=== PATIENT | male | born 1960 | race American Indian/Alaskan Native ===

== ENCOUNTER 2019-10-03 11:51 | Emergency (ER) | payer MEDICAID, OTHER ==
[2019-10-03] MEDS ORDERED: Sodium Chloride 0.9% 10 ML Syringe FLUSH PRN (12:01)
[2019-10-03] MEDS ORDERED: Sodium Chloride 0.9% 1,000 ML IV ONE ×3 (12:01→14:36)
[2019-10-03 12:49] LABS: ANION GAP 17.2 mEq/L (7-13)
[2019-10-03] MEDS ORDERED: Piperacillin/Tazobactam 3.375 GM in Sodium Chloride 0.9% 100 ML IV ONE (13:10)
[2019-10-03] MEDS ORDERED: Adenosine 6 MG/2 ML SDV IVPUSH ONE ×3 (13:19→14:36)
[2019-10-03 13:22] LABS: PTT,PARTIAL THROMBOPLSTIN TIME 32.4 SEC (22.0-34.0)
[2019-10-03 13:25] LABS: BASE EXCESS ARTERIAL -3 mmol/L ((-2)-(+3)); BICARBONATE,ARTERIAL 19.8 mmol/L (22-26); O2 DELIVERY DEVICE NASAL CANNULA; O2 SATURATION ARTERIAL 97 % (95-100); PCO2 ARTERIAL 29 mmHg (35-45); PO2 ARTERIAL 87 mmHg (70-100)
--- NOTE | 2019-10-03 13:29 | CR ---
PROCEDURE INFORMATION: Exam: XR Chest, 1 View Exam date and time: 10/03/2019 1:19 PM Age: 58 years old Clinical indication: Dyspnea TECHNIQUE: Imaging protocol: XR of the chest Views: 1 view. COMPARISON: No relevant prior studies available. FINDINGS: Lungs: Near-total opacification of the right hemithorax with minimal residual aerated lung at the right lung base and right apex. Pleural space: Unremarkable. No pleural effusion. No pneumothorax. Heart/Mediastinum: No mediastinal shift.The cardiac silhouette appears of normal size and configuration. Bones/joints: Unremarkable. IMPRESSION: Near-total opacification of the right hemithorax with minimal residual aerated lung at the right lung base and right apex.
[2019-10-03 13:30] LABS: ALLEN TEST pos; O2 FLOW RATE 3
--- NOTE | 2019-10-03 14:21 | CT ---
PROCEDURE INFORMATION: Exam: CT Chest Without Contrast Exam date and time: 10/03/2019 1:47 PM Age: 58 years old Clinical indication: Other: Abn cxr; Additional info: Abnormal cxr TECHNIQUE: Imaging protocol: Computed tomography of the chest without contrast. Radiation optimization: All CT scans at this facility use at least one of these dose optimization techniques: automated exposure control; mA and/or kV adjustment per patient size (includes targeted exams where dose is matched to clinical indication); or iterative reconstruction. COMPARISON: CR Chest 1V Frontal 10/03/2019 1:19 PM FINDINGS: Lungs: On lung windows there is near complete consolidation the right upper lobe. With associated air bronchograms. Pleural space: Unremarkable. No pneumothorax. No pleural effusion. Heart: Unremarkable. No cardiomegaly. No pericardial effusion. Aorta: Unremarkable. No aortic aneurysm. Lymph nodes: There are upper right paratracheal lymph nodes present measuring up to a cm. There is a larger right paratracheal node measuring 2.3 cm. There are multiple precarinal lymph nodes measuring up to 1.5 cm. There is also evidence of subcarinal enlarged lymph nodes. Bones/joints: Bone windows demonstrate anterior prominent osteophyte formation involving the mid and lower thoracic. There is degenerative changes seen involving the sternum. Soft tissues: Unremarkable. IMPRESSION: Complete consolidation of the right upper lobe except for the anterior aspect of the apex. There is associated mediastinal adenopathy. Although this may be secondary to pneumonia, however, the adenopathy is concerning for possible malignancy. Follow up after treatment is needed to document resolution.
--- NOTE | 2019-10-03 14:57 | EDM.PDOC ---
Scribed by Yasmin Chong 10/03/19 2504 for Angelique Rubio MD ED HPI GENERAL MEDICAL PROBLEM - General Chief Complaint: General Stated Complaint: FEVER/EXPOSURE TO COVID Time Seen by Provider: 10/03/19 12:30 Source of Information: Reports: Patient, RN, RN Notes Reviewed - History of Present Illness INITIAL COMMENTS - FREE TEXT/NARRATIVE: Patient presents to ED by POV stating he has had diarrhea for 2 weeks. He lives in an and has not had a ride in. On arrival he was complaining of chest pain, hypotensive and hypoxic. He has not eaten in 4-5 days. He has had no ETOH or drugs. He has no cough, but is short of breath. He lives alone. He states nothing hurts. he does have nausea. He also states "doesn't want to ". Onset: Gradual Duration: Getting Worse Location: Reports: Generalized Quality: Reports: Ache Severity: Moderate Improves with: Reports: None Worsens with: Reports: None Associated Symptoms: Reports: No Other Symptoms Abdominal Pain Score (Numeric/FACES): 4 - Related Data Allergies Allergy/AdvReac Type Severity Reaction Status Date / Time No Known Allergies Allergy Verified 10/03/19 12:37 Home Meds: Home Meds . [No Known Home Meds] 10/03/19 [History] Past Medical History - Past Health History Medical/Surgical History: Denies Medical/Surgical History Social & Family History - Family History Family Medical History: Noncontributory - Caffeine Use Caffeine Use: Reports: Coffee ED ROS GENERAL - Review of Systems Review Of Systems: Comprehensive ROS is negative, except as noted in HPI. ED EXAM, GENERAL - Physical Exam Exam: See Below Exam Limited By: No Limitations General Appearance: Alert, Thin, Other (disheveled) Throat/Mouth: No: Normal Teeth Head: Atraumatic, Normocephalic Respiratory/Chest: Respiratory Distress, Decreased Breath Sounds, Accessory Muscle Use, Retractions Cardiovascular: No Edema, Tachycardia (with runs of SVT) GI/Abdominal: Tender (to palpation. Generalized mild guarding.) Extremities: No Pedal Edema Neurological: Alert, Oriented, CN II-XII Intact, Normal Cognition, Normal Gait, Normal Reflexes, No Motor/Sensory Deficits Psychiatric: Normal Affect, Normal Mood Skin Exam: Warm, Dry, Intact, Normal Color, No Rash Course - Vital Signs Last Recorded V/S: Last Vital Signs Temp 98.8 F 10/03/19 12:00 Pulse 110 H 10/03/19 12:00 Resp 38 H 10/03/19 12:00 BP 75/58 L 10/03/19 12:00 Pulse Ox 85 L 10/03/19 12:00 - Orders/Labs/Meds Orders: Active Orders 24 hr Category Date Time Status EKG 12 Lead [EKG Documentation Completion] [] STAT Care 10/03/19 13:05 Active EKG Documentation Completion [RC] STAT Care 10/03/19 12:04 Active Oxygen Therapy Adult [Oxygen Therapy, ED] [] Care 10/03/19 12:02 Active ASDIRECTED Peripheral IV Care [RC] . DIRECTED Care 10/03/19 12:01 Active CLOSTRIDIUM DIFFICILE TOX RFLX [MREF] Stat Lab 10/03/19 13:17 Ordered CULTURE BLOOD [BC] Stat Lab 10/03/19 12:17 Received CULTURE BLOOD [BC] Stat Lab 10/03/19 12:20 Received CULTURE STOOL [RM] Stat Lab 10/03/19 13:17 Ordered DRUG SCREEN,SERUM [CHEM] Stat Lab 10/03/19 12:35 Ordered UA W/CHANTE RFLX IF INDICATED [URIN] Stat Lab 10/03/19 12:04 Ordered Sodium Chloride 0.9% [Normal Saline] 1,000 ml Med 10/03/19 14:36 Active IV .BOLUS Sodium Chloride 0.9% [Saline Flush] Med 10/03/19 12:01 Active 10 ml FLUSH ASDIRECTED PRN Blood Culture x2 Reflex Set [OM.PC] Stat Oth 10/03/19 12:03 Ordered Isolation [COMM] Stat Oth 10/03/19 13:18 Active Peripheral IV Insertion Adult [OM.PC] Routine Oth 10/03/19 12:01 Ordered Medication Orders Sodium Chloride (Normal Saline) 1,000 mls @ 999 mls/hr IV .BOLUS ONE Stop: 10/03/19 15:36 Last Admin: 10/03/19 14:00 Dose: 999 mls/hr Documented by: CELIO Sodium Chloride (Saline Flush) 10 ml FLUSH ASDIRECTED PRN PRN Reason: Keep Vein Open Last Admin: 10/03/19 12:10 Dose: 10 ml Documented by: CELIO Labs: Laboratory Tests 10/03/19 10/03/19 10/03/19 Range/Units 12:15 12:17 12:17 WBC 12.8 H (5.0-10.0) 10^3/uL RBC 4.53 L (4.6-6.2) 10^6/uL Hgb 13.4 L (14.0-18.0) g/dL Hct 37.4 L (40.0-54.0) % MCV 82.6 (80-100) fL MCH 29.6 (27.0-34.0) pg MCHC 35.8 H (33.0-35.0) g/dL Plt Count 212 (150-450) 10^3/uL Neut % (Auto) 94.5 H (42.2-75.2) % Lymph % (Auto) 3.0 L (20.5-50.1) % [place] % (Auto) 2.3 (2-8) % Eos % (Auto) 0.1 L (1.0-3.0) % Baso % (Auto) 0.1 (0.0-1.0) % Add Manual Diff Yes Neutrophils % (Manual) 88 H (42-75) % Band Neutrophils % 5 % Lymphocytes % (Manual) 4 L (20-50) % Monocytes % (Manual) 3 (2-8) % Giant Platelets Few PT (9.0-12.0) SEC INR (0.9-1.2) APTT (22.0-34.0) SEC ABG pH (7.35-7.45) ABG pCO2 (35-45) mmHg ABG pO2 (70-100) mmHg ABG HCO3 (22-26) mmol/L ABG O2 Saturation (95-100) % ABG Base Excess ((-2)-(+3)) mmol/L Júnior Test O2 Delivery Device Oxygen Flow Rate Sodium 121 L (136-145) mmol/L Potassium 3.2 L (3.5-5.1) mmol/L Chloride 87 L (98-107) mmol/L Carbon Dioxide 20 L (21-32) mmol/L Anion Gap 17.2 H (7-13) mEq/L BUN 57 H (7-18) mg/dL Creatinine 2.82 H (0.70-1.30) mg/dL Est Cr Clr Drug Dosing 32.70 mL/min Estimated GFR (MDRD) 23 BUN/Creatinine Ratio 20.2 (No establ ref range) Glucose 164 H (74-99) mg/dL Lactic Acid (0.4-2.0) mmol/L Calcium < 5.0 L* (8.5-10.1) mg/dL Total Bilirubin 4.7 H (0.2-1.0) mg/dL AST 84 H (15-37) U/L ALT 40 (16-63) U/L Alkaline Phosphatase 130 H (46-116) U/L Troponin I (0.000-0.056) ng/mL Total Protein 5.4 L (6.4-8.2) g/dL Albumin 1.4 L (3.4-5.0) g/dL Globulin 4.0 Albumin/Globulin Ratio 0.35 Amylase (25-115) U/L Lipase (73-393) U/L Ethyl Alcohol (0) mg/dL COVID-19 (COTY) Negative (NEGATIVE) 10/03/19 10/03/19 10/03/19 Range/Units 12:17 12:17 12:17 WBC (5.0-10.0) 10^3/uL RBC (4.6-6.2) 10^6/uL Hgb (14.0-18.0) g/dL Hct (40.0-54.0) % MCV (80-100) fL MCH (27.0-34.0) pg MCHC (33.0-35.0) g/dL Plt Count (150-450) 10^3/uL Neut % (Auto) (42.2-75.2) % Lymph % (Auto) (20.5-50.1) % [place] % (Auto) (2-8) % Eos % (Auto) (1.0-3.0) % Baso % (Auto) (0.0-1.0) % Add Manual Diff Neutrophils % (Manual) (42-75) % Band Neutrophils % % Lymphocytes % (Manual) (20-50) % Monocytes % (Manual) (2-8) % Giant Platelets PT 12.4 H (9.0-12.0) SEC INR 1.3 H (0.9-1.2) APTT 32.4 (22.0-34.0) SEC ABG pH (7.35-7.45) ABG pCO2 (35-45) mmHg ABG pO2 (70-100) mmHg ABG HCO3 (22-26) mmol/L ABG O2 Saturation (95-100) % ABG Base Excess ((-2)-(+3)) mmol/L Júnior Test O2 Delivery Device Oxygen Flow Rate Sodium (136-145) mmol/L Potassium (3.5-5.1) mmol/L Chloride (98-107) mmol/L Carbon Dioxide (21-32) mmol/L Anion Gap (7-13) mEq/L BUN (7-18) mg/dL Creatinine (0.70-1.30) mg/dL Est Cr Clr Drug Dosing mL/min Estimated GFR (MDRD) BUN/Creatinine Ratio (No establ ref range) Glucose (74-99) mg/dL Lactic Acid 4.2 H* (0.4-2.0) mmol/L Calcium (8.5-10.1) mg/dL Total Bilirubin (0.2-1.0) mg/dL AST (15-37) U/L ALT (16-63) U/L Alkaline Phosphatase (46-116) U/L Troponin I (0.000-0.056) ng/mL Total Protein (6.4-8.2) g/dL Albumin (3.4-5.0) g/dL Globulin Albumin/Globulin Ratio Amylase (25-115) U/L Lipase (73-393) U/L Ethyl Alcohol < 3 (0) mg/dL COVID-19 (COTY) (NEGATIVE) 10/03/19 10/03/19 10/03/19 Range/Units 12:17 12:17 13:21 WBC (5.0-10.0) 10^3/uL RBC (4.6-6.2) 10^6/uL Hgb (14.0-18.0) g/dL Hct (40.0-54.0) % MCV (80-100) fL MCH (27.0-34.0) pg MCHC (33.0-35.0) g/dL Plt Count (150-450) 10^3/uL Neut % (Auto) (42.2-75.2) % Lymph % (Auto) (20.5-50.1) % [place] % (Auto) (2-8) % Eos % (Auto) (1.0-3.0) % Baso % (Auto) (0.0-1.0) % Add Manual Diff Neutrophils % (Manual) (42-75) % Band Neutrophils % % Lymphocytes % (Manual) (20-50) % Monocytes % (Manual) (2-8) % Giant Platelets PT (9.0-12.0) SEC INR (0.9-1.2) APTT (22.0-34.0) SEC ABG pH 7.45 (7.35-7.45) ABG pCO2 29 L (35-45) mmHg ABG pO2 87 (70-100) mmHg ABG HCO3 19.8 L (22-26) mmol/L ABG O2 Saturation 97 (95-100) % ABG Base Excess -3 L ((-2)-(+3)) mmol/L Júnior Test pos O2 Delivery Device Nasal cannula Oxygen Flow Rate 3 Sodium (136-145) mmol/L Potassium (3.5-5.1) mmol/L Chloride (98-107) mmol/L Carbon Dioxide (21-32) mmol/L Anion Gap (7-13) mEq/L BUN (7-18) mg/dL Creatinine (0.70-1.30) mg/dL Est Cr Clr Drug Dosing mL/min Estimated GFR (MDRD) BUN/Creatinine Ratio (No establ ref range) Glucose (74-99) mg/dL Lactic Acid (0.4-2.0) mmol/L Calcium (8.5-10.1) mg/dL Total Bilirubin (0.2-1.0) mg/dL AST (15-37) U/L ALT (16-63) U/L Alkaline Phosphatase (46-116) U/L Troponin I < 0.017 (0.000-0.056) ng/mL Total Protein (6.4-8.2) g/dL Albumin (3.4-5.0) g/dL Globulin Albumin/Globulin Ratio Amylase 100 (25-115) U/L Lipase 500 H (73-393) U/L Ethyl Alcohol (0) mg/dL COVID-19 (COTY) (NEGATIVE) Meds: Medications Generic Name Dose Route Start Last Admin Trade Name Freq PRN Reason Stop Dose Admin Sodium Chloride 1,000 mls @ 999 mls/hr 10/03/19 14:36 10/03/19 14:00 Normal Saline IV 10/03/19 15:36 999 mls/hr .BOLUS ONE Administration Sodium Chloride 10 ml 10/03/19 12:01 10/03/19 12:10 Saline Flush FLUSH 10 ml ASDIRECTED PRN Administration Keep Vein Open Discontinued Medications Generic Name Dose Route Start Last Admin Trade Name Ilia PRN Reason Stop Dose Admin Adenosine 6 mg 10/03/19 13:19 10/03/19 12:58 Adenocard IVPUSH 10/03/19 13:20 6 mg NOW ONE Administration Adenosine 6 mg 10/03/19 14:35 10/03/19 13:36 Adenocard IVPUSH 10/03/19 14:36 6 mg NOW ONE Administration Adenosine 6 mg 10/03/19 14:36 10/03/19 13:57 Adenocard IVPUSH 10/03/19 14:37 6 mg NOW ONE Administration Sodium Chloride 1,000 mls @ 999 mls/hr 10/03/19 12:01 10/03/19 12:09 Normal Saline IV 10/03/19 13:01 999 mls/hr .BOLUS ONE Administration Piperacillin Sod/Tazobactam 100 mls @ 200 mls/hr 10/03/19 13:10 10/03/19 13:23 Sod 3.375 gm/ Sodium Chloride IV 10/03/19 13:39 200 mls/hr ONETIME ONE Administration Vancomycin HCl 1 gm/ Sodium 250 mls @ 167 mls/hr 10/03/19 13:10 10/03/19 13:23 Chloride IV 10/03/19 14:39 167 mls/hr ONETIME ONE Administration Sodium Chloride 1,000 mls @ 999 mls/hr 10/03/19 13:19 10/03/19 13:24 Normal Saline IV 10/03/19 14:19 999 mls/hr .BOLUS ONE Administration - Radiology Interpretation Free Text/Narrative:: Chest x-ray: Near-total opacification of the right hemithorax with minimal residual aerated lung at the right lung base and right apex. See rad report. Chest CT: Complete consolidation of the right upper lobe except for the anterior aspect of the apex. There is associated mediastinal adenopathy. Although this may be secondary to pneumonia, however, the adenopathy is concerning for possible malignancy. Follow up after treatment is needed to document resolution. See rad report. Departure - Departure Time of Disposition: 14:30 Disposition: DC/Tfer to [facility] 02 Condition: Serious Clinical Impression: Hypoxia, SVT (supraventricular tachycardia), Mediastinal adenopathy Pneumonia Qualifiers: Pneumonia type: due to unspecified organism Laterality: right Lung location: unspecified part of lung Qualified Code(s): J18.9 - Pneumonia, unspecified organism Sepsis Qualifiers: Sepsis type: sepsis due to unspecified organism Sepsis acute organ dysfunction status: with acute organ dysfunction Severe sepsis acute organ dysfunction type: acute respiratory failure Acute respiratory failure type: with hypoxia Severe sepsis shock status: unspecified Qualified Code(s): A41.9 - Sepsis, unspecified organism; R65.20 - Severe sepsis without septic shock; J96.01 - Acute respiratory failure with hypoxia - Discharge Information *PRESCRIPTION DRUG MONITORING PROGRAM REVIEWED*: Not Applicable *COPY OF PRESCRIPTION DRUG MONITORING REPORT IN PATIENT DEEJAY: Not Applicable Forms: ED Department Discharge, Interfacility Transfer [facility] Sepsis Event Note (ED) - Focused Exam Vital Signs: Vital Signs Temp Pulse Resp BP Pulse Ox 10/03/19 12:00 98.8 F 110 H 38 H 75/58 L 85 L - My Orders Last 24 Hours: My Active Orders 10/03/19 12:01 Peripheral IV Care [RC] . DIRECTED Sodium Chloride 0.9% [Saline Flush] 10 ml FLUSH ASDIRECTED PRN Peripheral IV Insertion Adult [OM.PC] Routine 10/03/19 12:02 Oxygen Therapy Adult [Oxygen Therapy, ED] [RC] ASDIRECTED 10/03/19 12:03 Blood Culture x2 Reflex Set [OM.PC] Stat 10/03/19 12:04 EKG Documentation Completion [RC] STAT UA W/CHANTE RFLX IF INDICATED [URIN] Stat 10/03/19 12:17 CULTURE BLOOD [BC] Stat 10/03/19 12:20 CULTURE BLOOD [BC] Stat 10/03/19 12:35 DRUG SCREEN,SERUM [CHEM] Stat 10/03/19 13:05 EKG 12 Lead [EKG Documentation Completion] [RC] STAT 10/03/19 13:17 CLOSTRIDIUM DIFFICILE TOX RFLX [MREF] Stat CULTURE STOOL [RM] Stat 10/03/19 13:18 Isolation [COMM] Stat 10/03/19 14:36 Sodium Chloride 0.9% [Normal Saline] 1,000 ml IV .BOLUS - Assessment/Plan Last 24 Hours: My Active Orders 10/03/19 12:01 Peripheral IV Care [RC] . DIRECTED Sodium Chloride 0.9% [Saline Flush] 10 ml FLUSH ASDIRECTED PRN Peripheral IV Insertion Adult [OM.PC] Routine 10/03/19 12:02 Oxygen Therapy Adult [Oxygen Therapy, ED] [RC] ASDIRECTED 10/03/19 12:03 Blood Culture x2 Reflex Set [OM.PC] Stat 10/03/19 12:04 EKG Documentation Completion [RC] STAT UA W/CHANTE RFLX IF INDICATED [URIN] Stat 10/03/19 12:17 CULTURE BLOOD [BC] Stat 10/03/19 12:20 CULTURE BLOOD [BC] Stat 10/03/19 12:35 DRUG SCREEN,SERUM [CHEM] Stat 10/03/19 13:05 EKG 12 Lead [EKG Documentation Completion] [RC] STAT 10/03/19 13:17 CLOSTRIDIUM DIFFICILE TOX RFLX [MREF] Stat CULTURE STOOL [RM] Stat 10/03/19 13:18 Isolation [COMM] Stat 10/03/19 14:36 Sodium Chloride 0.9% [Normal Saline] 1,000 ml IV .BOLUS I have read and agree with the documentation that has been completed regarding this visit. By signing this record, I attest that the documentation was complete d in my physical presence and is an accurate record of the encounter.
== END 2019-10-03 14:35 ==
LOC: DL.ED 11:51
DX: A41.9 Sepsis, unspecified organism (principal); J18.9 Pneumonia, unspecified organism; R65.20 Severe sepsis without septic shock; J96.01 Acute respiratory failure with hypoxia; I47.1 Supraventricular tachycardia; R59.0 Localized enlarged lymph nodes; R19.7 Diarrhea, unspecified; Z20.828 Contact with and (suspected) exposure to other viral communicable diseases
CPT/HCPCS: 36415; 36600; 71045; 71250; 80053; 80307; 82150; 82803; 83605; 83690; 84484; 85025; 85610; 85730; 87040; 87635; 93005; 96361; 96365; 96368; 96375; 96376; 99285; J0153; J2543; J3370; J7030; J7050; 99284; U0002

== ENCOUNTER 2019-10-13 09:04 | Inpatient (IN) | payer MEDICAID ==
[2019-10-13] MEDS ORDERED: Ondansetron 4 MG Tab.DIS PO PRN (13:58)
[2019-10-13] MEDS ORDERED: Docusate Sodium 100 MG Cap PO PRN (13:58)
[2019-10-13] MEDS: Piperacillin/Tazobactam 3.375 GM in Sodium Chloride 0.9% 100 ML IV SCH ×2 (16:00→21:58)
[2019-10-13] MEDS: traMADol 50 MG Tab PO PRN (17:06)
[2019-10-13] MEDS: Carvedilol 25 MG Tab PO SCH (17:07)
--- NOTE | 2019-10-13 17:17 | PCM.HP ---
H&P History of Present Illness - General Date of Service: 10/13/19 Admit Problem/Dx: Admission Diagnosis/Problem Admission Diagnosis/Problem Weakness Source of Information: Patient, Old Records (From [facility]) - History of Present Illness Initial Comments - Free Text/Narative: 58-year-old gentleman who initially presented with the shortness of breath. The patient was found to have pneumonia. Was transferred to [facility]. He had complicated hospital course Pneumonia with sepsis on presentation was treated He was evaluated by bronchoscopy. Followed by ID. Recommendation was continued IV Zosyn antibiotic He developed bilateral tingling in the feet. Initially Lyrica then Neurontin started Symptoms still continue Patient was noted to have acute renal insufficiency Will need nephrology follow-up He has a history of alcohol abuse. He says he quit 7 years ago. Elevated alkaline phosphatase, possible ascites was noted. 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 Runs of SVT noted These resolved Bilateral Feet Pain Score (Numeric/FACES): 7 - Related Data Allergies/Adverse Reactions: Allergies Allergy/AdvReac Type Severity Reaction Status Date / Time No Known Allergies Allergy Verified 10/13/19 12:50 Home Medications: Home Meds Furosemide 20 mg PO DAILY 10/13/19 [History] Gabapentin [Neurontin] 600 mg PO BID 10/13/19 [History] amLODIPine [Norvasc] 5 mg PO DAILY 10/13/19 [History] carvediloL [Coreg] 25 mg PO BIDMEALS 10/13/19 [History] Past Medical History - Past Health History Medical/Surgical History: Denies Medical/Surgical History HEENT History: Reports: None Other HEENT History: reading glasses Cardiovascular History: Reports: Hypertension Respiratory History: Reports: Other (See Below) Other Respiratory History: Pneumonia, sepsis 2020 Gastrointestinal History: Reports: None Genitourinary History: Reports: Chronic Renal Insuffiency, Other (See Below) Other Genitourinary History: new diagnosis Musculoskeletal History: Reports: Arthritis, Back Pain, Chronic Neurological History: Reports: Neuropathy, Peripheral Other Neuro History: Neuropathy in both feet recently Psychiatric History: Reports: None Endocrine/Metabolic History: Reports: None Hematologic History: Reports: None Immunologic History: Reports: None Oncologic (Cancer) History: Reports: None Dermatologic History: Reports: None - Infectious Disease History Infectious Disease History: Reports: None - Past Surgical History Head Surgeries/Procedures: Reports: None Cardiovascular Surgical History: Reports: None Musculoskeletal Surgical History: Reports: Other (See Below) Other Musculoskeletal Surgeries/Procedures:: left leg fracture, hip surgery Social & Family History - Family History Family Medical History: Noncontributory - Tobacco Use Smoking Status *Q: Current Every Day Smoker Years of Tobacco use: 35 Packs/Tins Daily: 1 - Caffeine Use Caffeine Use: Reports: Soda - Recreational Drug Use Recreational Drug Use: No H&P Review of Systems - Review of Systems: Review Of Systems: See Below General: Denies: Fever Pulmonary: Denies: Shortness of Breath Cardiovascular: Denies: Chest Pain, Edema Gastrointestinal: Denies: Abdominal Pain Musculoskeletal: Reports: Hand Pain (Tingling in fingers), Foot Pain (Bilateral tingling). Denies: Joint Swelling Psychiatric: Denies: Confusion Exam - Exam Exam: See Below - Vital Signs Vital Signs: Last Vital Signs Temp 97.7 F 10/13/19 13:58 Pulse 82 10/13/19 13:58 Resp 20 10/13/19 13:58 BP 128/84 10/13/19 13:58 Pulse Ox 96 10/13/19 13:58 - Exam Quality Assessment: No: Supplemental Oxygen Neck: Supple Lungs: Normal Respiratory Effort, Rhonchi (Bilateral, mild) Cardiovascular: Regular Rate, Regular Rhythm GI/Abdominal Exam: Normal Bowel Sounds, Soft, Non-Tender Extremities: No Pedal Edema - Problem List (1) Hypertension SNOMED Code(s): 29397273 ICD Code: I10 - ESSENTIAL (PRIMARY) HYPERTENSION Status: Acute Current Visit: Yes (2) Acute renal failure SNOMED Code(s): 41901649 ICD Code: N17.9 - ACUTE KIDNEY FAILURE, UNSPECIFIED Status: Acute Current Visit: Yes (3) Generalized weakness SNOMED Code(s): 01469494 ICD Code: R53.1 - WEAKNESS Status: Acute Current Visit: Yes (4) Pneumonia SNOMED Code(s): 280552686 ICD Code: J18.9 - PNEUMONIA, UNSPECIFIED ORGANISM Status: Acute Current Visit: No Problem List Initiated/Reviewed/Updated: Yes Orders Last 24hrs: Active Orders 24 hr Category Date Time Status Patient Status [ADT] Routine ADT 10/13/19 13:58 Active Oxygen Therapy [RC] PRN Care 10/13/19 13:58 Active Up With Assistance [RC] ASDIRECTED Care 10/13/19 13:58 Active Vital Signs [RC] QSHIFT Care 10/13/19 13:58 Active OT Evaluation and Treatment [CONS] Routine Cons 10/13/19 14:00 Active PT Evaluation and Treatment [CONS] Routine Cons 10/13/19 14:00 Active Regular Diet [DIET] Diet 10/13/19 Dinner Active Acetaminophen [Tylenol] Med 10/13/19 13:58 Active 650 mg PO Q4H PRN Docusate Sodium [Colace] Med 10/13/19 13:58 Active 100 mg PO BID PRN Furosemide [Lasix] Med 10/14/19 09:00 Active 20 mg PO DAILY Gabapentin [Neurontin] Med 10/13/19 21:00 Active 600 mg PO BID Heparin Sodium Med 10/13/19 22:00 Active 5,000 units SUBCUT Q8HR Ondansetron [Zofran ODT] Med 10/13/19 13:58 Active 4 mg PO Q6H PRN Piperacillin/Tazobactam [Zosyn] 3.375 gm Med 10/13/19 15:30 Active Sodium Chloride 0.9% [Normal Saline] 100 ml IV Q8HR Zolpidem [Ambien] Med 10/13/19 21:00 Active 5 mg PO BEDTIME PRN amLODIPine [Norvasc] Med 10/14/19 09:00 Active 5 mg PO DAILY carvediloL [Coreg] Med 10/13/19 18:00 Active 25 mg PO BIDMEALS traMADol [Ultram] Med 10/13/19 16:31 Active 50 mg PO Q6H PRN Resuscitation Status Routine Resus Stat 10/13/19 13:58 Ordered Medication Orders Acetaminophen (Tylenol) 650 mg PO Q4H PRN PRN Reason: Pain (Mild 1-3)/fever Amlodipine Besylate (Norvasc) 5 mg PO DAILY JOSEPH Carvedilol (Coreg) 25 mg PO BIDMEALS JOSEPH Docusate Sodium (Colace) 100 mg PO BID PRN PRN Reason: Constipation Furosemide (Lasix) 20 mg PO DAILY JOSEPH Gabapentin (Neurontin) 600 mg PO BID JOSEPH Heparin Sodium (Porcine) (Heparin Sodium) 5,000 units SUBCUT Q8HR JOSEPH Piperacillin Sod/Tazobactam (Sod 3.375 gm/ Sodium Chloride) 100 mls @ 200 mls/hr IV Q8HR JOSEPH Last Admin: 10/13/19 16:00 Dose: 200 mls/hr Documented by: CAREMOR Ondansetron HCl (Zofran Odt) 4 mg PO Q6H PRN PRN Reason: nausea, able to take PO Tramadol HCl (Ultram) 50 mg PO Q6H PRN PRN Reason: mod to severe pain Zolpidem Tartrate (Ambien) 5 mg PO BEDTIME PRN PRN Reason: Sleep Assessment/Plan Comment:: 58-year-old gentleman who initially presented with the shortness of breath. The patient was found to have pneumonia. Was transferred to [facility]. He had complicated hospital course Pneumonia with sepsis on presentation was treated He was evaluated by bronchoscopy. Followed by ID. Recommendation was continued IV Zosyn antibiotic Follow-up with ID in 1 week via telemedicine He developed bilateral tingling in the feet. Initially Lyrica then Neurontin started Symptoms still continue Add Ultram, physical and occupational therapy Patient was noted to have acute renal insufficiency Will need nephrology follow-up as outpatient He has a history of alcohol abuse. He says he quit 7 years ago. Elevated alkaline phosphatase, possible ascites was noted. 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
[2019-10-13] MEDS: Acetaminophen 325 MG Tab PO PRN (21:10)
[2019-10-13] MEDS: Zolpidem 5 MG Tab PO PRN (21:12)
[2019-10-13] MEDS: Gabapentin 300 MG Cap PO SCH (21:12)
[2019-10-13] MEDS: Heparin Sodium 5,000 Units/ML Vial SUBCUT SCH (22:03)
[2019-10-14] MEDS: Piperacillin/Tazobactam 3.375 GM in Sodium Chloride 0.9% 100 ML IV SCH ×3 (05:52→22:06)
[2019-10-14] MEDS: Heparin Sodium 5,000 Units/ML Vial SUBCUT SCH ×3 (05:57→22:01)
[2019-10-14] MEDS: traMADol 50 MG Tab PO PRN ×3 (06:03→20:32)
[2019-10-14] MEDS: Gabapentin 300 MG Cap PO SCH ×2 (09:03→20:32)
[2019-10-14] MEDS: amLODIPine 5 MG Tab PO SCH (09:03)
[2019-10-14] MEDS: Acetaminophen 325 MG Tab PO PRN ×2 (09:04→13:48)
[2019-10-14] MEDS: Furosemide 20 MG Tab PO SCH (09:04)
[2019-10-14] MEDS: Carvedilol 25 MG Tab PO SCH ×2 (09:04→18:03)
[2019-10-14] MEDS: Zolpidem 5 MG Tab PO PRN (20:32)
[2019-10-15] MEDS: traMADol 50 MG Tab PO PRN ×2 (04:41→22:27)
[2019-10-15] MEDS: Heparin Sodium 5,000 Units/ML Vial SUBCUT SCH ×3 (05:46→22:31)
[2019-10-15] MEDS: Piperacillin/Tazobactam 3.375 GM in Sodium Chloride 0.9% 100 ML IV SCH ×3 (05:48→22:24)
[2019-10-15] MEDS: Acetaminophen 325 MG Tab PO PRN (07:59)
[2019-10-15] MEDS: Gabapentin 300 MG Cap PO SCH ×2 (08:00→22:23)
[2019-10-15] MEDS: Carvedilol 25 MG Tab PO SCH ×2 (08:01→17:37)
[2019-10-15] MEDS: Furosemide 20 MG Tab PO SCH (08:01)
[2019-10-15] MEDS: amLODIPine 5 MG Tab PO SCH (08:01)
[2019-10-15] MEDS: Zolpidem 5 MG Tab PO PRN (22:27)
[2019-10-16] MEDS: Piperacillin/Tazobactam 3.375 GM in Sodium Chloride 0.9% 100 ML IV SCH ×3 (05:53→22:31)
[2019-10-16] MEDS: Heparin Sodium 5,000 Units/ML Vial SUBCUT SCH ×3 (05:57→22:39)
[2019-10-16] MEDS: Carvedilol 25 MG Tab PO SCH ×2 (09:27→17:46)
[2019-10-16] MEDS: Gabapentin 300 MG Cap PO SCH ×2 (09:28→22:35)
[2019-10-16] MEDS: amLODIPine 5 MG Tab PO SCH (09:28)
[2019-10-16] MEDS: Furosemide 20 MG Tab PO SCH (09:28)
[2019-10-16] MEDS: traMADol 50 MG Tab PO PRN ×2 (16:35→22:35)
[2019-10-16] MEDS: Zolpidem 5 MG Tab PO PRN (22:35)
[2019-10-17] MEDS: Piperacillin/Tazobactam 3.375 GM in Sodium Chloride 0.9% 100 ML IV SCH ×3 (05:39→21:16)
[2019-10-17] MEDS: Heparin Sodium 5,000 Units/ML Vial SUBCUT SCH ×3 (05:49→21:18)
[2019-10-17] MEDS: Carvedilol 25 MG Tab PO SCH ×2 (09:11→18:26)
[2019-10-17] MEDS: amLODIPine 5 MG Tab PO SCH (09:12)
[2019-10-17] MEDS: Furosemide 20 MG Tab PO SCH (09:12)
[2019-10-17] MEDS: Gabapentin 300 MG Cap PO SCH ×2 (09:12→20:16)
[2019-10-17] MEDS: traMADol 50 MG Tab PO PRN (20:17)
[2019-10-17] MEDS: Zolpidem 5 MG Tab PO PRN (20:17)
[2019-10-17] MEDS: Sodium Chloride 0.9% 10 ML Syringe FLUSH PRN (21:13)
[2019-10-18] MEDS: Piperacillin/Tazobactam 3.375 GM in Sodium Chloride 0.9% 100 ML IV SCH ×3 (06:00→22:07)
[2019-10-18] MEDS: Sodium Chloride 0.9% 10 ML Syringe FLUSH PRN ×2 (06:00→22:06)
[2019-10-18] MEDS: Heparin Sodium 5,000 Units/ML Vial SUBCUT SCH ×3 (06:03→22:04)
[2019-10-18] MEDS: Carvedilol 25 MG Tab PO SCH ×2 (07:57→17:27)
[2019-10-18] MEDS: Furosemide 20 MG Tab PO SCH ×2 (07:57→08:38)
[2019-10-18] MEDS: Gabapentin 300 MG Cap PO SCH ×3 (07:58→22:04)
[2019-10-18] MEDS: amLODIPine 5 MG Tab PO SCH ×2 (07:58→08:39)
--- NOTE | 2019-10-18 12:46 | PN ---
DATE: 10/18/2019 SUBJECTIVE: The patient is a 59-year-old male who was admitted to swing bed because of pneumonia and continued IV antibiotic treatment. The patient is doing fairly well. He denies any significant ongoing complaints. No chest pain, no shortness of breath, abdominal pain, nor any other complaints. OBJECTIVE: Vital Signs: Blood pressure is 135/81, pulse 66, respirations 20, temperature of 97, saturation is 97% on room air. Heart: Regular rate and rhythm. Normal S1 and S2. No gallops. No rubs. Lungs: Diminished breath sounds in both bases, but no crackles, no wheezing. Abdomen: Soft, nontender. Bowel sounds positive. Extremities: Negative for any pedal edema. No calf tenderness. MEDICATIONS: Reviewed. PLAN: We will continue with his present management, and we will continue with IV Zosyn. [facility] /[id number]
[2019-10-18] MEDS: Zolpidem 5 MG Tab PO PRN (22:04)
[2019-10-19] MEDS: Piperacillin/Tazobactam 3.375 GM in Sodium Chloride 0.9% 100 ML IV SCH ×3 (05:46→22:32)
[2019-10-19] MEDS: Sodium Chloride 0.9% 10 ML Syringe FLUSH PRN ×2 (05:46→14:22)
[2019-10-19] MEDS: Heparin Sodium 5,000 Units/ML Vial SUBCUT SCH ×3 (05:50→22:31)
[2019-10-19 06:57] LABS: ANION GAP 13.1 mEq/L (7-13)
[2019-10-19] MEDS: Gabapentin 300 MG Cap PO SCH ×2 (09:24→22:31)
[2019-10-19] MEDS: amLODIPine 5 MG Tab PO SCH (09:24)
[2019-10-19] MEDS: Furosemide 20 MG Tab PO SCH (09:24)
[2019-10-19] MEDS: Carvedilol 25 MG Tab PO SCH ×2 (09:24→17:56)
[2019-10-20] MEDS: Heparin Sodium 5,000 Units/ML Vial SUBCUT SCH ×3 (06:25→21:41)
[2019-10-20] MEDS: Piperacillin/Tazobactam 3.375 GM in Sodium Chloride 0.9% 100 ML IV SCH ×3 (06:28→21:42)
[2019-10-20] MEDS: amLODIPine 5 MG Tab PO SCH (09:02)
[2019-10-20] MEDS: Gabapentin 300 MG Cap PO SCH ×2 (09:02→21:41)
[2019-10-20] MEDS: Carvedilol 25 MG Tab PO SCH ×2 (09:02→17:49)
[2019-10-20] MEDS: Furosemide 40 MG Tab PO SCH (09:02)
[2019-10-20] MEDS ORDERED: Sodium Chloride 0.9% 1,000 ML IV ONE (13:30)
[2019-10-21] MEDS: Heparin Sodium 5,000 Units/ML Vial SUBCUT SCH ×3 (05:44→22:27)
[2019-10-21] MEDS: Piperacillin/Tazobactam 3.375 GM in Sodium Chloride 0.9% 100 ML IV SCH ×3 (05:45→22:28)
[2019-10-21 07:14] LABS: ANION GAP 12.7 mEq/L (7-13)
[2019-10-21] MEDS: Gabapentin 300 MG Cap PO SCH ×2 (08:33→22:27)
[2019-10-21] MEDS: amLODIPine 5 MG Tab PO SCH (08:34)
[2019-10-21] MEDS: Carvedilol 25 MG Tab PO SCH ×2 (08:34→17:40)
[2019-10-21] MEDS: Sodium Chloride 0.9% 10 ML Syringe FLUSH PRN ×2 (08:35→13:41)
--- NOTE | 2019-10-21 17:34 | CT ---
EXAMINATION: Chest wo Cont SEX: Male AGE: 59 years CLINICAL HISTORY: 59-year-old male with right orthopedic hip prosthesis, sepsis (long-term antibiotics) acute kidney injury, and abnormal CT scan chest 2 October, ("complete consolidation RUL with mediastinal lymphadenopathy"). Infection. Reevaluate please. Scan technique: Volume acquisition of data from the chest (bony thorax, lungs and mediastinum) obtained without oral or IV contrast while patient was lying supine on the Siemens multislice scanner [place], [place]. All data archived in the PACS system for storage, reformatting axial/sagittal/coronal planes and study (lung/mediastinal windows). Interpretation: Abnormal but decidedly improved radiographically since comparison exam 03 October 2019. 1. Right supraclavicular central venous infusion line. Mild kyphosis. Hypertrophic spondylosis dorsal spine. 2. Right upper lobe pneumonic-like consolidation with underlying air bronchograms, decreased in volume and new central aeration (doubt abscess). No underlying mass but right paratracheal lymphadenopathy persists. 3. No other lung mass lesion or signs of hilar/mediastinal lymphadenopathy. 4. No right lower lobe or left lung mass lesion, infiltrate or atelectasis. No pleural effusions. 5. Normal cardiac silhouette. No pericardial effusion. Normal caliber thoracic aorta. 6. No pulmonary vascular congestion, cephalization of flow or alveolar edema. 7. Unenhanced upper abdominal viscera unremarkable.
[2019-10-22] MEDS: Heparin Sodium 5,000 Units/ML Vial SUBCUT SCH ×3 (06:18→21:35)
[2019-10-22] MEDS: Piperacillin/Tazobactam 3.375 GM in Sodium Chloride 0.9% 100 ML IV SCH ×3 (06:19→21:40)
[2019-10-22] MEDS: amLODIPine 5 MG Tab PO SCH (09:38)
[2019-10-22] MEDS: Furosemide 40 MG Tab PO SCH (09:39)
[2019-10-22] MEDS: Gabapentin 300 MG Cap PO SCH ×2 (09:39→20:24)
[2019-10-22] MEDS: Carvedilol 25 MG Tab PO SCH ×2 (09:39→18:28)
[2019-10-23] MEDS: Heparin Sodium 5,000 Units/ML Vial SUBCUT SCH ×3 (05:38→21:12)
[2019-10-23] MEDS: Piperacillin/Tazobactam 3.375 GM in Sodium Chloride 0.9% 100 ML IV SCH ×3 (05:39→21:37)
[2019-10-23] MEDS: Carvedilol 25 MG Tab PO SCH ×2 (09:02→18:03)
[2019-10-23] MEDS: amLODIPine 5 MG Tab PO SCH (09:02)
[2019-10-23] MEDS: Gabapentin 300 MG Cap PO SCH ×2 (09:03→21:11)
[2019-10-23] MEDS: Sodium Chloride 0.9% 10 ML Syringe FLUSH PRN (21:37)
[2019-10-24] MEDS: Heparin Sodium 5,000 Units/ML Vial SUBCUT SCH ×3 (05:30→22:00)
[2019-10-24] MEDS: Sodium Chloride 0.9% 10 ML Syringe FLUSH PRN ×2 (05:31→22:01)
[2019-10-24] MEDS: Piperacillin/Tazobactam 3.375 GM in Sodium Chloride 0.9% 100 ML IV SCH ×3 (05:32→22:02)
[2019-10-24] MEDS: amLODIPine 5 MG Tab PO SCH (08:51)
[2019-10-24] MEDS: Gabapentin 300 MG Cap PO SCH ×2 (08:51→21:59)
[2019-10-24] MEDS: Carvedilol 25 MG Tab PO SCH ×2 (08:51→18:02)
[2019-10-25] MEDS: Heparin Sodium 5,000 Units/ML Vial SUBCUT SCH ×3 (06:02→21:52)
[2019-10-25] MEDS: Piperacillin/Tazobactam 3.375 GM in Sodium Chloride 0.9% 100 ML IV SCH ×3 (06:03→21:54)
[2019-10-25] MEDS: Carvedilol 25 MG Tab PO SCH ×2 (09:12→17:26)
[2019-10-25] MEDS: amLODIPine 5 MG Tab PO SCH (09:13)
[2019-10-25] MEDS: Gabapentin 300 MG Cap PO SCH ×2 (09:13→20:27)
[2019-10-25] MEDS: Furosemide 40 MG Tab PO SCH (09:13)
--- NOTE | 2019-10-25 10:39 | PN ---
DATE: 10/25/2019 SUBJECTIVE: The patient is doing fairly well. The patient denies any chest pain, fever, chills, shortness of breath, abdominal pain, or any other complaints. OBJECTIVE: Vital Signs: Blood pressure is 139/82, pulse 85, respirations 20, and temperature of 99.2. Heart: Regular rate and rhythm. Normal S1 and S2. No gallops. No rubs. Lungs: Equal bilaterally. No crackles, no wheezing. Abdomen: Soft, nontender. Bowel sounds positive. Extremities: Negative for any pedal edema. No calf tenderness. MEDICATIONS: Reviewed. PLAN: We will continue with his present management and continue with IV Zosyn. We will check for CBC and basic metabolic panel in a.m. [facility] /[id number]
[2019-10-25] MEDS: traMADol 50 MG Tab PO PRN (22:04)
[2019-10-26] MEDS: Heparin Sodium 5,000 Units/ML Vial SUBCUT SCH ×3 (05:58→21:27)
[2019-10-26] MEDS: Piperacillin/Tazobactam 3.375 GM in Sodium Chloride 0.9% 100 ML IV SCH ×3 (05:59→21:27)
[2019-10-26 06:50] LABS: ANION GAP 13.3 mEq/L (7-13)
[2019-10-26] MEDS: Gabapentin 300 MG Cap PO SCH ×2 (08:55→21:27)
[2019-10-26] MEDS: amLODIPine 5 MG Tab PO SCH (08:55)
[2019-10-26] MEDS: Carvedilol 25 MG Tab PO SCH ×2 (08:55→17:49)
[2019-10-26] MEDS: Sodium Chloride 0.9% 10 ML Syringe FLUSH PRN (21:28)
[2019-10-27] MEDS: Sodium Chloride 0.9% 10 ML Syringe FLUSH PRN (06:01)
[2019-10-27] MEDS: Heparin Sodium 5,000 Units/ML Vial SUBCUT SCH ×3 (06:01→21:57)
[2019-10-27] MEDS: Piperacillin/Tazobactam 3.375 GM in Sodium Chloride 0.9% 100 ML IV SCH ×3 (06:01→21:58)
[2019-10-27 06:44] LABS: ANION GAP 13.1 mEq/L (7-13)
[2019-10-27] MEDS: Furosemide 40 MG Tab PO SCH (09:08)
[2019-10-27] MEDS: amLODIPine 5 MG Tab PO SCH (09:08)
[2019-10-27] MEDS: Carvedilol 25 MG Tab PO SCH ×2 (09:09→17:41)
[2019-10-27] MEDS: Gabapentin 300 MG Cap PO SCH ×2 (09:09→21:57)
[2019-10-27] MEDS: traMADol 50 MG Tab PO PRN (15:20)
[2019-10-28] MEDS: Heparin Sodium 5,000 Units/ML Vial SUBCUT SCH ×3 (06:17→21:47)
[2019-10-28] MEDS: Piperacillin/Tazobactam 3.375 GM in Sodium Chloride 0.9% 100 ML IV SCH ×3 (06:18→21:47)
[2019-10-28] MEDS: amLODIPine 5 MG Tab PO SCH (08:35)
[2019-10-28] MEDS: Carvedilol 25 MG Tab PO SCH ×2 (08:35→17:31)
[2019-10-28] MEDS: traMADol 50 MG Tab PO PRN (08:36)
[2019-10-28] MEDS: Gabapentin 300 MG Cap PO SCH ×2 (08:37→21:46)
[2019-10-28] MEDS: Sodium Chloride 0.9% 10 ML Syringe FLUSH PRN (21:49)
[2019-10-29] MEDS: Heparin Sodium 5,000 Units/ML Vial SUBCUT SCH ×3 (05:46→22:10)
[2019-10-29] MEDS: Piperacillin/Tazobactam 3.375 GM in Sodium Chloride 0.9% 100 ML IV SCH ×3 (05:47→22:08)
[2019-10-29] MEDS: Carvedilol 25 MG Tab PO SCH ×2 (08:21→18:28)
[2019-10-29] MEDS: amLODIPine 5 MG Tab PO SCH (08:21)
[2019-10-29] MEDS: Gabapentin 300 MG Cap PO SCH ×2 (08:21→20:41)
[2019-10-29] MEDS: Furosemide 40 MG Tab PO SCH (08:22)
[2019-10-29] MEDS ORDERED: Menthol/Methyl Salicylate 85 GM Tube TOP PRN (14:10)
[2019-10-29] MEDS: Sodium Chloride 0.9% 10 ML Syringe FLUSH PRN ×2 (22:06→22:46)
[2019-10-30] MEDS: Sodium Chloride 0.9% 10 ML Syringe FLUSH PRN ×4 (05:29→22:26)
[2019-10-30] MEDS: Piperacillin/Tazobactam 3.375 GM in Sodium Chloride 0.9% 100 ML IV SCH ×3 (05:32→21:45)
[2019-10-30] MEDS: Heparin Sodium 5,000 Units/ML Vial SUBCUT SCH ×3 (05:34→21:48)
[2019-10-30] MEDS: amLODIPine 5 MG Tab PO SCH (08:13)
[2019-10-30] MEDS: Gabapentin 300 MG Cap PO SCH ×2 (08:13→20:33)
[2019-10-30] MEDS: Carvedilol 25 MG Tab PO SCH ×2 (08:14→17:41)
[2019-10-31] MEDS: Sodium Chloride 0.9% 10 ML Syringe FLUSH PRN ×3 (05:46→21:11)
[2019-10-31] MEDS: Piperacillin/Tazobactam 3.375 GM in Sodium Chloride 0.9% 100 ML IV SCH ×3 (05:49→21:11)
[2019-10-31] MEDS: Heparin Sodium 5,000 Units/ML Vial SUBCUT SCH ×3 (05:51→21:11)
[2019-10-31] MEDS: Carvedilol 25 MG Tab PO SCH ×2 (07:47→17:59)
[2019-10-31] MEDS: amLODIPine 5 MG Tab PO SCH (08:00)
[2019-10-31] MEDS: Gabapentin 300 MG Cap PO SCH ×2 (08:01→21:11)
[2019-10-31] MEDS ORDERED: LORazepam 2 MG/ML SDV IVPUSH PRN (22:44)
[2019-11-01] MEDS: Piperacillin/Tazobactam 3.375 GM in Sodium Chloride 0.9% 100 ML IV SCH ×3 (06:22→21:37)
[2019-11-01] MEDS: Heparin Sodium 5,000 Units/ML Vial SUBCUT SCH ×3 (06:22→21:36)
[2019-11-01] MEDS: Gabapentin 300 MG Cap PO SCH ×2 (08:31→21:37)
[2019-11-01] MEDS: Furosemide 40 MG Tab PO SCH (08:31)
[2019-11-01] MEDS: amLODIPine 5 MG Tab PO SCH (08:32)
[2019-11-01] MEDS: Carvedilol 25 MG Tab PO SCH ×2 (08:32→17:38)
--- NOTE | 2019-11-01 10:11 | PCM.PN ---
- General Info Date of Service: 11/01/19 Admission Dx/Problem (Free Text): Admission Diagnosis/Problem Admission Diagnosis/Problem Weakness Subjective Update: 58-year-old gentleman who was discharged to our swing bed from [facility] after complicated pneumonia to complete IV Zosyn. He was seen and examined today. Patient doing okay. He denies any symptoms. No fever or chills. Functional Status: Reports: Pain Controlled - Review of Systems General: Reports: No Symptoms HEENT: Reports: No Symptoms Pulmonary: Reports: No Symptoms Cardiovascular: Reports: No Symptoms Gastrointestinal: Reports: No Symptoms Genitourinary: Reports: No Symptoms Musculoskeletal: Reports: No Symptoms Skin: Reports: No Symptoms Neurological: Reports: No Symptoms Psychiatric: Reports: No Symptoms - Patient Data Vitals - Most Recent: Last Vital Signs Temp 99.1 F 10/31/19 20:00 Pulse 65 11/01/19 08:32 Resp 18 10/31/19 20:00 BP 151/86 H 11/01/19 08:32 Pulse Ox 98 10/31/19 20:00 Weight - Most Recent: 178 lb 12.8 oz I&O - Last 24 Hours: Intake & Output 10/31/19 11/01/19 11/01/19 22:59 06:59 14:59 Intake Total 100 Balance 100 Med Orders - Current: Current Medications Acetaminophen (Tylenol) 650 mg PO Q4H PRN PRN Reason: Pain (Mild 1-3)/fever Last Admin: 10/15/19 07:59 Dose: 650 mg Documented by: Amlodipine Besylate (Norvasc) 2.5 mg PO DAILY [facility] Last Admin: 11/01/19 08:32 Dose: 2.5 mg Documented by: Carvedilol (Coreg) 25 mg PO BIDMEALS [facility] Last Admin: 11/01/19 08:32 Dose: 25 mg Documented by: Docusate Sodium (Colace) 100 mg PO BID PRN PRN Reason: Constipation Furosemide (Lasix) 40 mg PO MoWeFr@0900 [facility] Last Admin: 11/01/19 08:31 Dose: 40 mg Documented by: Gabapentin (Neurontin) 600 mg PO BID [facility] Last Admin: 11/01/19 08:31 Dose: 600 mg Documented by: Heparin Sodium (Porcine) (Heparin Sodium) 5,000 units SUBCUT Q8HR [facility] Last Admin: 11/01/19 06:22 Dose: 5,000 units Documented by: Piperacillin Sod/Tazobactam (Sod 3.375 gm/ Sodium Chloride) 100 mls @ 200 mls/hr IV Q8HR [facility] Last Admin: 11/01/19 06:22 Dose: 200 mls/hr Documented by: Methyl Salicylate (Icy Hot Cream) 0 gm TOP QID PRN PRN Reason: Pain (mild 1-3) Last Admin: 10/29/19 14:31 Dose: 1 applic Documented by: Ondansetron HCl (Zofran Odt) 4 mg PO Q6H PRN PRN Reason: nausea, able to take PO Sodium Chloride (Saline Flush) 10 ml FLUSH ASDIRECTED PRN PRN Reason: Keep Vein Open Last Admin: 10/31/19 21:11 Dose: 10 ml Documented by: Tramadol HCl (Ultram) 50 mg PO Q6H PRN PRN Reason: mod to severe pain Last Admin: 10/28/19 08:36 Dose: 50 mg Documented by: Zolpidem Tartrate (Ambien) 5 mg PO BEDTIME PRN PRN Reason: Sleep Last Admin: 10/18/19 22:04 Dose: 5 mg Documented by: Discontinued Medications Amlodipine Besylate (Norvasc) 5 mg PO DAILY [facility] Last Admin: 10/19/19 09:24 Dose: 5 mg Documented by: Furosemide (Lasix) 20 mg PO DAILY [facility] Last Admin: 10/19/19 09:24 Dose: 20 mg Documented by: Sodium Chloride (Normal Saline) 1,000 mls @ 999 mls/hr IV .BOLUS ONE Stop: 10/20/19 14:30 Last Admin: 10/20/19 13:43 Dose: 999 mls/hr Documented by: - Exam Quality Assessment: DVT Prophylaxis General: Alert, Oriented HEENT: Pupils Equal, Pupils Reactive, EOMI, Mucous Membr. Moist/[place] Neck: Supple Lungs: Clear to Auscultation, Normal Respiratory Effort Cardiovascular: Regular Rate, Regular Rhythm GI/Abdominal Exam: Normal Bowel Sounds, Soft, Non-Tender, No Organomegaly, No Distention, No Abnormal Bruit, No Mass, Pelvis Stable (Male) Exam: No Hernia, Normal Inspection, Normal Prostate, Circumcised Back Exam: Normal Inspection, Full Range of Motion Extremities: Normal Inspection, Normal Range of Motion, Non-Tender, No Pedal Edema, Normal Capillary Refill Skin: Warm, Dry, Intact Wound/Incisions: Healing Well Neurological: No New Focal Deficit Psy/Mental Status: Alert, Normal Affect, Normal Mood Sepsis Event Note - Evaluation Sepsis Screening Result: No Definite Risk - Focused Exam Vital Signs: Vital Signs Pulse BP 11/01/19 08:32 65 151/86 H - Problem List Review Problem List Initiated/Reviewed/Updated: Yes - My Orders Last 24 Hours: My Active Orders 11/02/19 09:26 Chest 2V [CR] Routine - Plan Plan:: #Pneumonia with sepsis -Patient doing well. -Continue IV Zosyn -Repeat CBC and BMP today -Follow-up with ID via telemedicine #Bilateral tingling in the feet -Continue current cares #history of alcohol abuse. -He says he quit 7 years ago #Elevated alkaline phosphatase likely due to alcohol abuse -Follow-up #Hypertension -Continue Coreg and Norvasc #Physical debility -Continue PT/OT #DVT prophylaxis with subcutaneous heparin
[2019-11-01 20:24] LABS: ANION GAP 13.1 mEq/L (7-13)
[2019-11-02] MEDS: Heparin Sodium 5,000 Units/ML Vial SUBCUT SCH ×3 (06:00→21:38)
[2019-11-02] MEDS: Piperacillin/Tazobactam 3.375 GM in Sodium Chloride 0.9% 100 ML IV SCH ×3 (06:01→22:19)
[2019-11-02 06:18] LABS: ANION GAP 12.9 mEq/L (7-13); CHLORIDE,CL 106 mmol/L (98-107); SODIUM,NA 141 mmol/L (136-145)
[2019-11-02] MEDS: Carvedilol 25 MG Tab PO SCH ×2 (09:09→17:40)
[2019-11-02] MEDS: Gabapentin 300 MG Cap PO SCH ×2 (09:09→21:38)
--- NOTE | 2019-11-02 09:09 | CR ---
PROCEDURE INFORMATION: Exam: XR Chest, 2 Views Exam date and time: 11/02/2019 8:43 AM Age: 59 years old Clinical indication: Other: Pneumonia; Additional info: F/u for right sided pneumonia per request of id TECHNIQUE: Imaging protocol: XR of the chest Views: 2 views. COMPARISON: 1. CT Chest wo Cont 10/21/2019 2:[address] Chest wo Cont 10/03/2019 1:47 PM FINDINGS: Tubes, catheters and devices: A right central venous catheter has the tip projected over the distal SVC. Lungs: Extensive right upper lobe consolidation is grossly unchanged compared with 10/21/2019. Consolidation has improved compared with 10/03/2019. The left lung remains adequately inflated and clear. Pleural space: Unremarkable. No pleural effusion. No pneumothorax. Heart/Mediastinum: Unremarkable. No cardiomegaly. Bones/joints: Multilevel flowing osteophytes in the spine suggest diffuse idiopathic skeletal hyperostosis (DISH). IMPRESSION: No significant change in right upper lobe consolidation compared with 10/21/2019.
[2019-11-02] MEDS: amLODIPine 5 MG Tab PO SCH (09:10)
[2019-11-02] MEDS: traMADol 50 MG Tab PO PRN (09:11)
[2019-11-02] MEDS: Sodium Chloride 0.9% 10 ML Syringe FLUSH PRN ×2 (22:17→22:51)
[2019-11-03] MEDS: Sodium Chloride 0.9% 10 ML Syringe FLUSH PRN (06:18)
[2019-11-03] MEDS: Piperacillin/Tazobactam 3.375 GM in Sodium Chloride 0.9% 100 ML IV SCH ×2 (06:19→15:51)
[2019-11-03] MEDS: Heparin Sodium 5,000 Units/ML Vial SUBCUT SCH ×2 (06:21→15:50)
[2019-11-03] MEDS: Gabapentin 300 MG Cap PO SCH ×2 (07:40→10:38)
[2019-11-03] MEDS: amLODIPine 5 MG Tab PO SCH ×2 (07:40→10:38)
[2019-11-03] MEDS: Carvedilol 25 MG Tab PO SCH ×2 (07:41→19:04)
[2019-11-03] MEDS: Furosemide 40 MG Tab PO SCH (10:38)
--- NOTE | 2019-11-04 09:56 | PCM.DCSUM1 ---
Discharge Summary - Hospital Course Free Text/Narrative:: The patient was admitted to swing bed for IV antibiotic therapy for pneumonia with sepsis. He also received physical and occupational therapy for debility. His hypertension was managed. The patient followed up with ID. On 02 November the patient was to be taken to infectious disease outpatient appointment by family. The patient never arrived to the appointment and did not return back to the hospital. Follow-up phone calls were not answered. Diagnosis: Stroke: No - Discharge Data Discharge Date: 11/04/19 Discharge Disposition: Against Medical Advice 07 Condition: Fair - Referral to Home Health Primary Care Physician: Royal Paniagua MD - Discharge Diagnosis/Problem(s) (1) Hypertension SNOMED Code(s): 77333619 ICD Code: I10 - ESSENTIAL (PRIMARY) HYPERTENSION Status: Acute Current Visit: Yes (2) Acute renal failure SNOMED Code(s): 53399763 ICD Code: N17.9 - ACUTE KIDNEY FAILURE, UNSPECIFIED Status: Acute Current Visit: Yes (3) Generalized weakness SNOMED Code(s): 20022919 ICD Code: R53.1 - WEAKNESS Status: Acute Current Visit: Yes (4) Pneumonia SNOMED Code(s): 227737742 ICD Code: J18.9 - PNEUMONIA, UNSPECIFIED ORGANISM Status: Acute Current Visit: No - Patient Summary/Data Consults: Consultations 10/13/19 14:00 OT Evaluation and Treatment [CONS] Routine PT Evaluation and Treatment [CONS] Routine - Patient Instructions Diet: Heart Healthy Diet Activity: As Tolerated - Discharge Plan *PRESCRIPTION DRUG MONITORING PROGRAM REVIEWED*: Not Applicable *COPY OF PRESCRIPTION DRUG MONITORING REPORT IN PATIENT DEEJAY: Not Applicable Home Medications: Home Meds Furosemide 20 mg PO DAILY 10/13/19 [History] Gabapentin [Neurontin] 600 mg PO BID 10/13/19 [History] amLODIPine [Norvasc] 5 mg PO DAILY 10/13/19 [History] carvediloL [Coreg] 25 mg PO BIDMEALS 10/13/19 [History] Oxygen Therapy Mode: Room Air - Discharge Summary/Plan Comment DC Time >30 min.: No - Patient Data Vitals - Most Recent: Last Vital Signs Temp 98.9 F 11/03/19 08:00 Pulse 64 11/03/19 08:00 Resp 18 11/03/19 08:00 BP 140/85 11/03/19 08:00 Pulse Ox 98 11/03/19 08:00 Weight - Most Recent: 192 lb 9.6 oz Med Orders - Current: Current Medications Acetaminophen (Tylenol) 650 mg PO Q4H PRN PRN Reason: Pain (Mild 1-3)/fever Last Admin: 10/15/19 07:59 Dose: 650 mg Documented by: Amlodipine Besylate (Norvasc) 5 mg PO DAILY [facility] Last Admin: 11/03/19 10:38 Dose: Not Given Documented by: Carvedilol (Coreg) 25 mg PO BIDMEALS [facility] Last Admin: 11/03/19 19:04 Dose: Not Given Documented by: Docusate Sodium (Colace) 100 mg PO BID PRN PRN Reason: Constipation Furosemide (Lasix) 40 mg PO MoWeFr@0900 [facility] Last Admin: 11/03/19 10:38 Dose: Not Given Documented by: Gabapentin (Neurontin) 600 mg PO BID [facility] Last Admin: 11/03/19 10:38 Dose: Not Given Documented by: Heparin Sodium (Porcine) (Heparin Sodium) 5,000 units SUBCUT Q8HR [facility] Last Admin: 11/03/19 15:50 Dose: Not Given Documented by: Piperacillin Sod/Tazobactam (Sod 3.375 gm/ Sodium Chloride) 100 mls @ 200 mls/h r IV Q8HR [facility] Last Admin: 11/03/19 15:51 Dose: Not Given Documented by: Methyl Salicylate (Icy Hot Cream) 0 gm TOP QID PRN PRN Reason: Pain (mild 1-3) Last Admin: 10/29/19 14:31 Dose: 1 applic Documented by: Ondansetron HCl (Zofran Odt) 4 mg PO Q6H PRN PRN Reason: nausea, able to take PO Sodium Chloride (Saline Flush) 10 ml FLUSH ASDIRECTED PRN PRN Reason: Keep Vein Open Last Admin: 11/03/19 06:18 Dose: 10 ml Documented by: Tramadol HCl (Ultram) 50 mg PO Q6H PRN PRN Reason: mod to severe pain Last Admin: 11/02/19 09:11 Dose: 50 mg Documented by: Zolpidem Tartrate (Ambien) 5 mg PO BEDTIME PRN PRN Reason: Sleep Last Admin: 10/18/19 22:04 Dose: 5 mg Documented by: Discontinued Medications Amlodipine Besylate (Norvasc) 5 mg PO DAILY [facility] Last Admin: 10/19/19 09:24 Dose: 5 mg Documented by: Amlodipine Besylate (Norvasc) 2.5 mg PO DAILY [facility] Last Admin: 11/02/19 09:10 Dose: 2.5 mg Documented by: Furosemide (Lasix) 20 mg PO DAILY [facility] Last Admin: 10/19/19 09:24 Dose: 20 mg Documented by: Sodium Chloride (Normal Saline) 1,000 mls @ 999 mls/hr IV .BOLUS ONE Stop: 10/20/19 14:30 Last Admin: 10/20/19 13:43 Dose: 999 mls/hr Documented by:
== END 2019-11-04 10:25 | disposition left against medical advice (07) | DRG 194 ==
LOC: DL.MS 13:23
PROVIDERS: ADMIT Internal Medicine; ATTEND Internal Medicine
DX: J18.9 Pneumonia, unspecified organism (principal); N17.9 Acute kidney failure, unspecified; E22.2 Syndrome of inappropriate secretion of antidiuretic hormone; R53.1 Weakness; N18.9 Chronic kidney disease, unspecified; G62.9 Polyneuropathy, unspecified; M19.90 Unspecified osteoarthritis, unspecified site; M54.9 Dorsalgia, unspecified; G89.29 Other chronic pain; F17.200 Nicotine dependence, unspecified, uncomplicated; R20.2 Paresthesia of skin; R74.8 Abnormal levels of other serum enzymes; Z79.899 Other long term (current) drug therapy
CPT/HCPCS: 36415; 71046; 71250; 80048; 80053; 80069; 82043; 85025; 85651; 85999; 86140; 97162-GP; 97165-GO; A9270-GY; J1644; J2543; J7030; J7050